=== PATIENT | male | born 1985 | race African-American/Black ===

== ENCOUNTER 2021-11-28 09:11 | Emergency (ER) | payer OTHER ==
[~2021-11-28] VITALS: Ht 195.6 cm; Wt 87.0 kg
[2021-11-28] MEDS ORDERED: DIPH25CA83 MT (09:46)
[2021-11-28] MEDS ORDERED: HYDR453.3 TP (09:46)
[2021-11-28] MEDS ORDERED: DOXY100T2 MT (09:46)
[2021-11-28 09:59] VITALS: BP 115/85
== END 2021-11-28 10:01 | disposition home or self-care (01) ==
LOC: ER 09:23
DX: R21 Rash and other nonspecific skin eruption (principal)
CPT/HCPCS: 99282; 99283

== ENCOUNTER 2022-10-16 08:06 | Emergency (ER) | payer MEDICAID, OTHER ==
[~2022-10-16] VITALS: Ht 185.4 cm; Wt 89.0 kg
[~2022-10-16 08:06] MED LIST: DIPH25CA83 MT; DOXY100T2 MT; HYDR453.3 TP
[2022-10-16] MEDS ORDERED: DEXAMETHASONE 10 MG/ML VIAL IM ONE (08:30)
[2022-10-16] MEDS ORDERED: KETOROLAC 60MG/2ML VIAL IM ONE (08:30)
[2022-10-16] MEDS ORDERED: HYDROCODONE/ACETAMINOPHEN 5/325MG TABLET PO ONE (08:30)
[2022-10-16] MEDS ORDERED: CEFTRIAXONE SODIUM 1 G/VIAL IM ONE (08:30)
[2022-10-16] MEDS ORDERED: KETOROLAC 60MG/2ML VIAL IM NR (10:15)
[2022-10-16] MEDS ORDERED: CEFTRIAXONE SODIUM 1 G/VIAL IM NR (10:15)
[2022-10-16] MEDS ORDERED: DEXAMETHASONE 10 MG/ML VIAL IM NR (10:15)
[2022-10-16] MEDS ORDERED: HYDROCODONE/ACETAMINOPHEN 5/325MG TABLET PO NR (10:15)
[2022-10-16 10:29] VITALS: BP 146/110
[2022-10-16] MEDS ORDERED: T3 PO (11:06)
[2022-10-16] MEDS ORDERED: AMOX-494 MT (11:06)
== END 2022-10-16 11:23 | disposition home or self-care (01) ==
LOC: ER 08:06
DX: K04.7 Periapical abscess without sinus (principal); L03.211 Cellulitis of face; R03.0 Elevated blood-pressure reading, without diagnosis of hypertension
CPT/HCPCS: 96372; 99284; J0696; J1100; J1885